=== PATIENT | female | born 1950 | race Caucasian/White ===

== ENCOUNTER 2016-11-07 17:27 | Emergency (ER) | payer MEDICAID ==
[2016-11-07 17:40] VITALS: BP 134/72; PULSE 84; RESP 16; TEMP 99; O2SAT 94
[2016-11-07] MEDS ORDERED: IBUPROFEN 800 MG TAB PO ONE (18:49)
--- NOTE | 2016-11-07 18:53 | UCPHY ---
H & P Time Seen by Provider: 11/07/16 18:29 Patient Type: New HPI/ROS: HPI Right ear pain. 66-year-old female by private vehicle. She complains of right ear pain since earlier this morning. No sore throat. No history of barotrauma. No scuba diving. She does not swim. No fever. No headache. ROS: Constitutional: No fever, no chills. No weakness. Eyes: No discharge. No changes in vision. ENT: No sore throat. No nasal congestion or rhinorrhea. As above. Musculoskeletal: No back pain. No neck pain. No myalgias or arthralgias. Skin: No rashes. Neurological: No headache. No focal weakness or altered sensation. Past medical history: Hypothyroidism, , depression. Social history: Here by herself. Nonsmoker. Physical Exam: General Appearance: Alert, no distress. This patient is responding to questions appropriately and in full sentences. This patient appears well- hydrated and well-nourished. Eyes: Pupils equal and round no pallor or injection. No lid edema, erythema or injection. ENT, Mouth: Mucous membranes are moist. The pharyngeal tissues are unremarkable. No edema or swelling. No asymmetry suggestive of abscess. No erythema or exudates. The right external auditory canal and right tympanic membrane are unremarkable on speculum exam. There is no evidence of otitis externa or otitis media. There is no periauricular swelling, erythema or edema. The left external auditory canal and tympanic membrane are normal on speculum exam. Neurological: Motor sensory function is grossly intact. Cranial nerves are normal. Gait is normal. Skin: Warm and dry, no rashes. Musculoskeletal: Neck is supple and nontender. No lymphadenopathy. Extremities are symmetrical. All joints range without pain or impingement. Psychiatric: No agitation. No depression. Database: EKG: Imaging: Procedures: Emergency department course: Patient given 600 mg of ibuprofen after my evaluation. Her physical exam is normal. She does not have any evidence of otitis externa or otitis media. Vital signs reviewed and are unremarkable. Plan will be to treat her with high- dose ibuprofen for the next 2-3 days only. We will have her follow up with [facility] on Wednesday or Wednesday of this week for re-evaluation. She feels comfortable with this plan. Return to Urgent Care precautions reviewed with her. All of her questions were answered. She was discharged in good condition. Differential Diagnosis: The differential diagnosis on this patient includes but is not limited to right ear inflammation. Otitis externa, otitis media, other serious bacterial infection unlikely. This represents a partial list of diagnoses considered. These considerations are based on history, physical exam, past history, reassessment and diagnostic testing. Smoking Status: Never smoked Constitutional: Initial Vital Signs Temperature (C) 37.2 C 11/07/16 17:36 Heart Rate 84 11/07/16 17:36 Respiratory Rate 16 11/07/16 17:36 Blood Pressure 134/72 H 11/07/16 17:36 O2 Sat (%) 94 11/07/16 17:36 O2 Delivery Mode Room Air Allergies/Adverse Reactions: No Known Allergies Allergy (Verified 11/07/16 17:37) Home Medications: Medication Instructions Recorded Levothyroxine [Synthroid] 11/29/10 Advair 100/50 (*) 11/07/16 Albuterol 11/07/16 Lexapro 11/07/16 Protonix 11/07/16 Departure - Departure Disposition: Home, Routine, Self-Care Clinical Impression: Right ear pain Condition: Good Instructions: Earache (ED) Additional Instructions: Read and follow provided instructions. Follow-up with your primary care physician at [facility] in 1-2 days for re-evaluation. Call their office on Wednesday for appointment time. Ibuprofen dosin mg every 6 hours with meals for the next 2-3 days only. Return to the emergency department for worsening pain, fever or other serious concerns. Referrals: [facility] [Outside] - As per Instructions - PQRS PQRS Measurement: 134: Depression screening and followup, PRIME MD-PHQ2 (12 years and older) Over the last 2 weeks, how often have you been bothered by any of the following problems? 1. Feeling down, depressed, or hopeless? 2. Little interest or pleasure in doing things? Answered no to both questions. 130: Documentation of medications. Reviewed all patient medications, doses, route and frequency. 226: Do you smoke? No. 47: 65 and older: Advanced care planning. Patient designates surrogate decision maker as family. 51: 18 years old and older with diagnosis of COPD, spirometry performance. NA 52: 18 years old and older with COPD and symptoms of COPD or FEV1<60% predicted prescribed a B Agonist. NA
== END 2016-11-07 19:00 | disposition home or self-care (01) ==
LOC: CED 17:27
DX: H92.01 Otalgia, right ear (principal); E03.9 Hypothyroidism, unspecified; F32.9 Major depressive disorder, single episode, unspecified
CPT/HCPCS: 99203-PO; G0463-PO

== ENCOUNTER → 2017-11-16 | Outpatient (CLI) | payer OTHER, MEDICARE | LOC: FIMAGING 07:24 | PROVIDERS: ATTEND Physician Assistant | DX: K76.0 Fatty (change of) liver, not elsewhere classified (principal); R19.7 Diarrhea, unspecified ==

== ENCOUNTER → 2017-12-14 | Outpatient (CLI) | payer OTHER, MEDICARE ==
[~2017-12-14] MED LIST: IOPAMIDOL (ISOVUE-300) 100 ML BTL ONE
== END ==
LOC: FIMAGING 09:44
PROVIDERS: ATTEND Physician Assistant
DX: R10.13 Epigastric pain (principal); K76.0 Fatty (change of) liver, not elsewhere classified; Z86.012 Personal history of benign carcinoid tumor
CPT/HCPCS: 74177; Q9967